=== PATIENT | female | born 1945 | race Caucasian/White ===

== ENCOUNTER 2018-02-19 09:40 | Emergency (ER) | payer MEDICARE ==
[2018-02-19 09:56] VITALS: BP 149/76
--- NOTE | 2018-02-19 09:59 | UC ---
Skin Complaint HPI - HPI Summary HPI Summary: Pt presents with tick bite to right neck. She tells me that she first noticed the tick this morning when putting on her necklace to go to work. She is having landscaping work done around her house and was outside helping 2 days ago and thinks this may have been when the tick attached itself. Denies fever, chills, myalgias. - History of Current Complaint Chief Complaint: UCSkin Time Seen by Provider: 02/19/18 09:58 Stated Complaint: SKIN COMPLAINT/TICK Hx Obtained From: Patient Onset/Duration: Sudden Onset Current Severity: None Pain Intensity: 0 - Allergy/Home Medications Allergies/Adverse Reactions: Allergies Allergy/AdvReac Type Severity Reaction Status Date / Time atorvastatin [From Lipitor] Allergy Fatigue Verified 02/19/18 09:52 Home Medications: Home Medications Rosuvastatin Calcium [Crestor] 1 tab QPM 02/19/18 [History Confirmed 02/19/18] Review of Systems Constitutional: Negative Skin: Other - Tick bite right neck Respiratory: Negative Cardiovascular: Negative Gastrointestinal: Negative Musculoskeletal: Negative Neurological: Negative Psychological: Negative All Other Systems Reviewed And Are Negative: Yes PMH/Surg Hx/FS Hx/Imm Hx Previously Healthy: Yes Endocrine History: Dyslipidemia Cardiovascular History: Hypertension - Surgical History Surgical History: Yes Surgery Procedure, Year, and Place: tonsilectomy. hysterectomy. Laminectomy - Social History Occupation: Employed Part-time Lives: With Family Alcohol Use: None Substance Use Type: None Smoking Status (MU): Former Smoker Type: Cigarettes Amount Used/How Often: occasional cigarette Length of Time of Smoking/Using Tobacco: 1 year Have You Smoked in the Last Year: No When Did the Patient Quit Smoking/Using Tobacco: 1966 Physical Exam - Summary Physical Exam Summary: GENERAL: NAD. WDWN. No pain distress. SKIN: Right neck just superior to clavicle there is a 4mm diameter area of erythema. No FB or tick parts remaining. No bleeding, discharge, or streaking. NECK: Supple. Nontender. No lymphadenopathy. CHEST: CTAB. No r/r/w. No accessory muscle use. Breathing comfortably and in no distress. CV: RRR. Without m/r/g. Pulses intact. Brisk cap refill. NEURO: Alert. CN II-XII grossly intact. PSYCH: Age appropriate behavior. Triage Information Reviewed: Yes Vital Signs: Initial Vital Signs Temp 98.1 F 02/19/18 09:53 Pulse 72 02/19/18 09:53 Resp 16 02/19/18 09:53 BP 149/76 02/19/18 09:53 Pulse Ox 100 02/19/18 09:53 Course/Dx - Course Course Of Treatment: Tick bite right neck. Pt removed the tick herself and thinks it has been attached for at least 2 days. After discussing risk of lyme transmission - she elected for prophylactic Doxycycline. - Diagnoses Provider Diagnoses: tick bite right neck Discharge - Sign-Out/Discharge Documenting (check all that apply): Discharge - Discharge Plan Condition: Stable Disposition: HOME Prescriptions: DOXYcycline CAP(*) [DOXYcycline 100MG CAP(*)] 200 mg PO ONCE #2 cap Patient Education Materials: Lyme Disease (ED), Tick Bite (ED) Referrals: Kev Darling MD [Primary Care Provider] - Additional Instructions: If you develop a fever, shortness of breath, chest pain, new or worsening symptoms - please call your PCP or go to the ED. Your blood pressure was high at todays visit. Please see your primary provider within 4 weeks for recheck and re-evaluation. - Billing Disposition and Condition Condition: STABLE Disposition: HOME
== END 2018-02-19 10:15 | disposition home or self-care (01) ==
LOC: UCCORT 09:40
DX: S10.96XA Insect bite of unspecified part of neck, initial encounter (principal); W57.XXXA Bitten or stung by nonvenomous insect and other nonvenomous arthropods, initial encounter; Y93.H2 Activity, gardening and landscaping; Y92.239 Unspecified place in hospital as the place of occurrence of the external cause; Z88.8 Allergy status to other drugs, medicaments and biological substances; Z87.891 Personal history of nicotine dependence
CPT/HCPCS: 99212; G0463

== ENCOUNTER 2020-01-14 17:01 | Emergency (ER) | payer MEDICARE ==
--- OUTSIDE RECORDS SUMMARY | 2020-01-14 17:13 | XMS REPORT | Continuity of Care Document ---
:1945 External Reference #:[id number] Author Name Kev Darling M.D. 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 Onset: 05/02/2008 Pure hypercholesterolemia Kev Darling M.D. Onset: 05/02/2008 Impaired fasting glycaemia Kev Darling M.D. Onset: 05/02/2008 History of polyp of colon Kev Darling M.D. Onset: 05/02/2008 Essential hypertension Kev Darling M.D. Onset: 10/08/2015 Social History Type Date Description Comments Sex Unknown Tobacco Use Reviewed: 10/13/19 Denies Cigarette Use smoked <1yr ~age 18 Smoking Status Reviewed: 11/30/19 Denies Cigarette Use smoked <1yr ~age 18 ETOH Use Rarely consumes alcohol Tobacco Use Start: Unknown Non Smoker Exercise Exercises regularly Type/Frequency Allergies, Adverse Reactions, Alerts Active Allergies Reaction Severity Comments Date Lipitor myalgias, hives 03/10/2008 Medications Active Medications SIG Qnty Indications Ordering Date Provider Sulfamethoxazole/Trim 1 by mouth twice a 6tabs N30.00 Lisset, 12/19/2019 ethoprim DS day x3 days; for Lynn Angulo 800-160mg urinary tract Tablets infection [facility] B[facility] one spray per 8.430ml J30.9 Elizabeth Nieves 11/30/2019 nostril daily MD Julia 32mcg/Act Suspension Claritin 1 tablet every 30tabs J30.9 Elizabeth Nieves 11/30/2019 10mg Tablets morning as needed MD Julia for allergies/runny nose. Losartan Potassium take one tablet by 90tabs I10 Silcoff, 04/26/2018 50mg mouth every Lynn Angulo Tablets morning for high blood pressure Triamterene/Hydrochlo 1 by mouth every 90tabs I10 Silcoff, 03/16/2014 rothiazide morning for high Lynn Angulo 37.5-25mg blood pressure (to Tablets replace plain hydrochlorothiazid e) Crestor 1 by mouth every 90tabs E78.00 Silcoff, 08/08/2011 5mg Tablets evening for high Lynn Angulo cholesterol Multivitamins 1 PO qd Unknown 05/02/2008 Tablets Immunizations CPT Code Status Date Vaccine Lot # [id number] Given 08/13/2019 Influenza Vaccine Split Virus Preservative Free Im Use (hi-dose) [id number] Given 08/08/2018 Influenza Virus Vaccine, Quadrivalent, Split, Im Use 19755 Given 08/11/2016 Influenza Vaccine Split Virus Preservative Free Im [id number] Use (hi-dose) 04975 Given 09/17/2015 Influenza Vaccine Split Virus Preservative Free Im [id number] Use (hi-dose) 66864 Given 04/02/2015 Adacel or Boostrix, TDaP [id number] 79619 Given 04/02/2015 Prevnar 13 [id number] 42979 Given 08/25/2014 Influenza Vaccine Split Virus Preservative Free Im Use (hi-dose) 39932 Given 08/29/2013 Flu, Split Virus 3Yrs [id number] 13811 Given 08/16/2012 Flu, Split Virus 3Yrs [id number] 38369 Given 08/28/2011 Flu, Split Virus 3Yrs [id number] 93251 Given 08/18/2010 Td Immunization [id number] 97951 Given 08/14/2009 Zostavax [id number] 39314 Given 08/14/2009 Pneumococcal Immunization [id number] 84028 Given 10/22/1999 Td Immunization 81502 Given 07/18/1991 Pneumococcal Immunization 05468 Refused 06/13/2018 Shingrix Zoster (Shingles) Vaccine (HZV) Recomb,Subnit,Adjuvanted Vital Signs Date Vital Result Comment 12/19/2019 3:41pm BP Systolic 110 mmHg BP Diastolic 60 mmHg Body Temperature 97.8 F Weight 156.00 lb 11/30/2019 2:34pm BP Systolic 122 mmHg BP Diastolic 64 mmHg Height 67 inches 5'7" Weight 159.00 lb BMI (Body Mass Index) 24.9 kg/m2 Results Test Acquired Date Facility Test Result H/L Range Note Urine Micro Inhouse 12/19/2019 In House [facility] WBC TNTC 1 Ua RBC - Ua Casts - Ua Epi - Ua Other bacteria, clust Ua Glucose - Ua Bilirubin - Ua Ketones - Ua Specific [place] 1.005 Ua Blood - Ua PH 5.0 Ua Protein - Ua Urobilinogen - Ua Nitrite + Ua Leukocytes +++ 1 Void, clear, yellow Procedures Date Code Description Status 10/13/2019 84280 Electrocardiogram Complete Completed 05/03/2019 23647558 Mammogram Completed 01/07/2012 18832737 Colonoscopy Completed Medical Devices Description No Information Available Encounters Type Date Location Provider Dx Diagnosis Office Visit 12/19/2019 3:00p Main Office Kev Darling M.D. R30.0 Dysuria R35.0 Frequency of micturition R39.15 Urgency of urination N30.00 Acute cystitis without hematuria Office Visit 11/30/2019 2:30p Main Office Elizabeth Nieves J30.9 Sukhjinder ronquillo MD unspecified Z68.24 Body mass index (BMI) 24.0-24.9, adult Office Visit 10/13/2019 9:30a Main Office Kev Darling Z68.24 Body mass index M.D. (BMI) 24.0-24.9, adult I10 Essential (primary) hypertension M67.441 Ganglion, right hand E78.00 Pure hypercholesterolemia, unspecified Assessments Date Code Description Provider 12/19/2019 R30.0 Dysuria Kev Darling M.D. 12/19/2019 R35.0 Frequency of micturition Kev Darling M.D. 12/19/2019 R39.15 Urgency of urination Kev Darling M.D. 12/19/2019 N30.00 Acute cystitis without hematuria Kev Darling M.D. 11/30/2019 J30.9 Allergic rhinitis, unspecified Elizabeth Nieves MD 11/30/2019 Z68.24 Body mass index (BMI) 24.0-24.9, adult Elizabeth Nieves MD 10/13/2019 Z68.24 Body mass index (BMI) 24.0-24.9, adult Kev Darling M.D. 10/13/2019 I10 Essential (primary) hypertension Kev Darling M.D. 10/13/2019 M67.441 Ganglion, right hand Kev Darling M.D. 10/13/2019 E78.00 Pure hypercholesterolemia, unspecified Kev Darling M.D. Plan of Treatment Future Appointment(s):04/02/2020 10:00 am - Radiology, Dexa & X-Ray at Main Cvcidi1104/02/2020 10:30 am - Kev Darling M.D. at Main Bwobke5312/19/2019 - Kev Darling M.D.R30.0 NbhrkxlH32.0 Frequency of fkhplxfsarmD57.15 Urgency of fpocdbybgO17.00 Acute cystitis without hematuriaNew Medication: Sulfamethoxazole/Trimethoprim DS 800-160 mg - 1 by mouth twice a day x3 days; for urinary tract infectionComments:Start Abx, push fluids. Call back if worsening Sxs or not resolved at end of Tx. Functional Status Description No Information Available Mental Status Description No Information Available Referrals Description No Information Available
--- OUTSIDE RECORDS SUMMARY | 2020-01-14 17:13 | XMS REPORT | Continuity of Care Document ---
:1945 External Reference #:[id number] Author Name Elizabeth Nieves MD Address [address] [place] [address] Care Team Providers Name Role Phone Zain Crowe MD - Neurological Care Team Information Health Safety Manager [phone] Surgery Problems Active Problems Provider Date Benign [...] Medications SIG Qnty Indications Ordering Date Provider [facility] B[facility] one spray per 8.430ml J30.9 Elizabeth Nieves 11/30/2019 nostril daily MD Julia 32mcg/Act Suspension Claritin 1 tablet every 30tabs J30.9 Elizabeth Nieves 11/30/2019 10mg Tablets morning as needed MD Julia for allergies/runny nose. Losartan Potassium take one tablet by 90tabs I10 Lisset 04/26/2018 50mg mouth every Lynn Angulo Tablets morning for high blood pressure Triamterene/Hydrochlo 1 by mouth every 90tabs I10 Silcoff, 03/16/2014 rothiazide morning for high Rahat AnguloD. 37.5-25mg blood pressure (to Tablets replace plain hydrochlorothiazid e) Crestor 1 by mouth every 90tabs E78.00 Silcoff, 08/08/2011 5mg Tablets evening for high Lynn Angulo cholesterol Multivitamins 1 PO qd Unknown 05/02/2008 Tablets Immunizations CPT Code Status Date Vaccine Lot # [id number] Given 08/13/2019 Influenza Vaccine Split Virus Preservative Free Im Use (hi-dose) 76124 Given 08/08/2018 Influenza Virus Vaccine, Quadrivalent, Split, Im Use 85365 Given 08/11/2016 Influenza Vaccine Split Virus Preservative Free Im [id number] Use (hi-dose) 84941 Given 09/17/2015 Influenza Vaccine Split Virus Preservative Free Im [id number] Use (hi-dose) 21193 Given 04/02/2015 Adacel or Boostrix, TDaP [id number] 65691 Given 04/02/2015 Prevnar 13 [id number] 82319 Given 08/25/2014 Influenza Vaccine Split Virus Preservative Free Im Use (hi-dose) 98323 Given 08/29/2013 Flu, Split Virus 3Yrs [id number] 92902 Given 08/16/2012 Flu, Split Virus 3Yrs [id number] 78131 Given 08/28/2011 Flu, Split Virus 3Yrs [id number] 83345 Given 08/18/2010 Td Immunization [id number] 56019 Given 08/14/2009 Zostavax [id number] 49777 Given 08/14/2009 Pneumococcal Immunization [id number] 72672 Given 10/22/1999 Td Immunization 04731 Given 07/18/1991 Pneumococcal Immunization 93663 Refused 06/13/2018 Shingrix Zoster (Shingles) Vaccine (HZV) Recomb,Subnit,Adjuvanted Vital Signs Date Vital Result Comment 11/30/2019 2:34pm BP Systolic 122 mmHg BP Diastolic 64 mmHg Height 67 inches 5'7" Weight 159.00 lb BMI (Body Mass Index) 24.9 kg/m2 10/13/2019 9:20am BP Systolic 140 mmHg BP Diastolic 80 mmHg Height 67.50 inches 5'7.50" Weight 158.00 lb BMI (Body Mass Index) 24.4 kg/m2 Results Description No Information Available Procedures Date Code Description Status 10/13/2019 58031 Electrocardiogram Complete Completed 05/03/2019 [id number] Mammogram Completed 01/07/2012 54121621 Colonoscopy Completed Medical Devices Description No Information Available Encounters Type Date Location Provider Dx Diagnosis Office Visit 11/30/2019 Main Office Elizabeth Nieves J30.9 Allergic rhinitis, 2:30p unspecified Z68.24 Body mass index (BMI) 24.0-24.9, adult Office Visit 10/13/2019 9:30a Main Office Kev Darling Z68.24 Body mass index M.D. (BMI) 24.0-24.9, adult I10 Essential (primary) hypertension M67.441 Ganglion, right hand E78.00 Pure hypercholesterolemia, unspecified Assessments Date Code Description Provider 11/30/2019 J30.9 Allergic rhinitis, unspecified Elizabeth Nieves [...] - Radiology, Dexa & X-Ray at Main Smvrbm9404/02/2020 10:30 am - Kev Darling M.D. at Main Vujtpz2011/30/2019 - Elizabeth Nieves MDJ30.9 Allergic rhinitis, unspecifiedNew Medication:[facility] B[facility] 32 mcg/Act - one spray per nostril dailyClaritin 10 mg - 1 tablet every morning as needed for allergies/runny nose.Follow up:will give symptomatic relief, if worsens or no improvement in a few days, f/u.Z68.24 Body mass index (BMI) 24.0-24.9, adult Functional Status Description No Information Available Mental Status Description No Information Available Referrals Description No Information Available
[2020-01-14 17:24] VITALS: BP 146/79
--- NOTE | 2020-01-14 18:06 | ED ---
Skin Complaint - HPI Summary HPI Summary: 74 yo WF p/w cat scratches on right forearm at about noon today. Pt just adopted a new cat and it became scared at the sight of house dog and bit pt. Pt states skin feels sore and became more increasingly achy and decided to come to justice f/c - History of Current Complaint Chief Complaint: UCUpperExtremity Time Seen by Provider: 01/14/20 17:03 Stated Complaint: CAT SCRATCH Hx Obtained From: Patient Onset/Duration: Started Hours Ago Skin Exposure Onset/Duration: Days Ago Timing: Lasting Hours Onset Severity: Moderate Current Severity: Moderate Pain Intensity: 5 - Allergy/Home Medications Allergies/Adverse Reactions: Allergies Allergy/AdvReac Type Severity Reaction Status Date / Time atorvastatin [From Lipitor] Allergy Fatigue Verified 01/14/20 17:25 Home Medications: Home Medications Triamterene/HCTZ 37.5-25 MG* [Dyazide CAP*] 1 cap PO DAILY 04/16/16 [History Confirmed 01/14/20] Rosuvastatin Calcium [Crestor] 1 tab PO QPM 02/19/18 [History Confirmed 01/14/20 ] Azithromycin TAB* [Zithromax TAB (Z-NATALYA) 250 mg #6 tabs] 2 tab PO .TODAY, THEN 1 DAILY #1 natalya 01/14/20 [Rx] Losartan TAB* [Cozaar TAB*] 50 mg PO DAILY 01/14/20 [History Confirmed 01/14/20] PMH/Surg Hx/FS Hx/Imm Hx Previously Healthy: Yes Endocrine/Hematology History: Denies: Hx Diabetes Cardiovascular History: Reports: Hx Hypertension Denies: Hx Pacemaker/ICD Sensory History: Denies: Hx Hearing Aid Psychiatric History: Denies: Hx Panic Disorder - Cancer History Hx Chemotherapy: No Hx Radiation Therapy: No - Surgical History Surgery Procedure, Year, and Place: tonsilectomy. hysterectomy, oopharectomy. Laminectomy Infectious Disease History: No Infectious Disease History: Denies: Traveled Outside the [place] in Last 30 Days - Social History Alcohol Use: None Substance Use Type: Reports: None Smoking Status (MU): Former Smoker Type: Cigarettes Amount Used/How Often: occasional cigarette Length of Time of Smoking/Using Tobacco: 1 year Have You Smoked in the Last Year: No Review of Systems Constitutional: Negative Eyes: Negative ENT: Negative Cardiovascular: Negative Respiratory: Negative Gastrointestinal: Negative Genitourinary: Negative Musculoskeletal: Negative Skin: Other - cat scratch Neurological/Mental Status: Negative Psychological: Normal All Other Systems Reviewed And Are Negative: Yes Physical Exam - Summary Physical Exam Summary: Vital Signs Reviewed: Yes Appearance: Positive: No Pain Distress Skin: Positive: Warm, diffuse scabbed over punctate skin lesions on right forearm with mild surrounding ecchymosis and swelling with moderate TTP Head/Face: Positive: Normal Head/Face Inspection Eyes: Positive: Normal ENT: Positive: Normal ENT inspection Neck: Positive: Supple Respiratory/Lung Sounds: Positive: Clear to Auscultation Cardiovascular: Positive: Normal, RRR, S1, S2 Abdomen Description: Positive: Nontender Musculoskeletal: Positive: Normal Neurological: Positive: Normal Psychiatric: Positive: Normal Triage Information Reviewed: Yes Vital Signs On Initial Exam: Initial Vitals Temp Pulse Resp BP Pulse Ox 36.8 C 68 15 146/79 100 01/14/20 17:21 01/14/20 17:21 01/14/20 17:21 01/14/20 17:21 01/14/20 17:21 Diagnostics - Vital Signs Vital Signs Temp Pulse Resp BP Pulse Ox 01/14/20 17:21 36.8 C 68 15 146/79 100 - Laboratory Lab Statement: Any lab studies that have been ordered have been reviewed, and results considered in the medical decision making process. Course/Dx - Diagnoses Provider Diagnoses: Cat scratch Discharge ED - Sign-Out/Discharge Documenting (check all that apply): Patient Departure All imaging exams completed and their final reports reviewed: No Studies - Discharge Plan Condition: Stable Disposition: HOME Prescriptions: Azithromycin TAB* [Zithromax TAB (Z-NATALYA) 250 mg #6 tabs] 2 tab PO .TODAY, THEN 1 DAILY #1 natalya Patient Education Materials: Cat Scratch Disease (ED) Referrals: Kev Darling MD [Primary Care Provider] - - Billing Disposition and Condition Condition: STABLE Disposition: Home
== END 2020-01-14 18:04 | disposition home or self-care (01) ==
LOC: UCCORT 17:01
DX: S50.811A Abrasion of right forearm, initial encounter (principal); Z88.8 Allergy status to other drugs, medicaments and biological substances; Z87.891 Personal history of nicotine dependence; W55.03XA Scratched by cat, initial encounter; Y92.9 Unspecified place or not applicable
CPT/HCPCS: 99211; G0463

== ENCOUNTER 2023-08-10 09:58 | Inpatient (IN) ==
[~2023-08-10 09:58] MED LIST: Buffered Lidocaine 1% SYRIN 1 ml INTRADERM ONE; Famotidine IV 10 MG/ML 2 ml VIAL (20 mg) IV ONE
[2023-08-10] MEDS ORDERED: Lidocaine 2% PF 5 ML VIAL ONE (10:52)
[2023-08-10] MEDS ORDERED: Phenylephrine IV 10 MG/ML 1 ml VIAL ONE (10:52)
[2023-08-10] MEDS ORDERED: Tranexamic Acid 1 GM/100ML BAG 2,000 MG/200 ML BAG IV ONE (10:55)
[2023-08-10] MEDS ORDERED: ceFAZolin 2 GM PREMIX 2 GM/50 ML BAG ONE (10:55)
[2023-08-10] MEDS ORDERED: Famotidine IV 10 MG/ML 2 ml VIAL (20 mg) ONE (10:56)
[2023-08-10] MEDS: Lactated Ringers 1000 ml BAG 1,000 ML IV SCH ×3 (11:21→17:57)
[2023-08-10] MEDS ORDERED: Midazolam 2 mg/2 ml VIAL 1 mg/ml 2 ml VIAL (2 mg) ONE (11:27)
[2023-08-10] MEDS ORDERED: fentaNYL 100 mcg/2 ml 50 MCG/ML VIAL ONE ×4 (11:27→16:35)
[2023-08-10] MEDS ORDERED: ROPIVACAINE 5 MG/ML 30 ML BTL (0.5%) ONE ×2 (11:27→12:11)
[2023-08-10 11:30] LABS: Rapid COVID-19 Molecular Undetected (Undetected)
[2023-08-10] MEDS ORDERED: Ondansetron 4 mg VIAL 2 MG/ML 2 ml VIAL ONE (13:14)
[2023-08-10] MEDS ORDERED: Dexamethasone IV 4 MG/ML VIAL 1 ml VIAL ONE (13:14)
[2023-08-10] MEDS ORDERED: HYDROmorphone 0.5 MG/0.5 ML SYRINGE ONE ×2 (13:51→13:53)
[2023-08-10] MEDS ORDERED: Ondansetron ODT 4 mg TAB 4 MG TAB PO PRN (14:28)
[2023-08-10] MEDS ORDERED: Lactulose 30 ml UDC PO PRN (14:28)
[2023-08-10] MEDS ORDERED: Ondansetron 4 mg VIAL 2 MG/ML 2 ml VIAL IV PRN ×2 (14:28→14:49)
[2023-08-10] MEDS ORDERED: Morphine 2 MG/ML SYRINGE IV PRN (14:28)
[2023-08-10] MEDS ORDERED: Magnesium Hydroxide LIQ 30 ML UDC PO PRN (14:28)
[2023-08-10] MEDS ORDERED: Acetaminophen IV 1 GM/100ML 1,000 MG/100 ML BAG IV ONE (14:44)
[2023-08-10] MEDS ORDERED: Naloxone 0.4 mg VIAL 0.4 mg/ml 1 ml VIAL IV PRN (14:49)
[2023-08-10] MEDS: fentaNYL 100 mcg/2 ml 50 MCG/ML VIAL IV PRN ×5 (16:06→16:36)
[2023-08-10] MEDS: Magnesium Hydroxide LIQ 30 ML UDC PO SCH (22:02)
[2023-08-10] MEDS: ceFAZolin 1 GM ADVAN 1 GM in NS 0.9% 50 ML 50 ML IVPB SCH (22:11)
[2023-08-11] MEDS: Lactated Ringers 1000 ml BAG 1,000 ML IV SCH (03:10)
[2023-08-11] MEDS: ceFAZolin 1 GM ADVAN 1 GM in NS 0.9% 50 ML 50 ML IVPB SCH ×2 (06:21→12:52)
[2023-08-11 07:02] LABS: Hematocrit 36.1 % (35-45); Hemoglobin 12.7 g/dL (11.5-14.3); Mean Platelet Volume 10.5 fL (7.5-11.2); Platelet Count 133 10^3/uL (150-450)
[2023-08-11 07:10] LABS: Calcium 8.7 mg/dL (8.6-10.3); Creatinine, Serum 0.72 mg/dL (0.51-0.95); Potassium 4.5 mmol/L (3.5-5.0)
[2023-08-11] MEDS: Magnesium Hydroxide LIQ 30 ML UDC PO SCH (08:17)
[2023-08-11] MEDS ORDERED: Vitamin THERAPEUTIC TAB PO SCH (09:00)
[2023-08-11 14:08] VITALS: BP 117/61
== END 2023-08-11 14:45 | disposition home or self-care (01) | DRG 470 ==
LOC: INTOOBSV 09:58 → AA 09:58 → SSU 17:14
PROVIDERS: ADMIT Orthopaedic Surgery Adult Reconstructive Orthopaedic Surgery; ATTEND Orthopaedic Surgery Adult Reconstructive Orthopaedic Surgery